=== PATIENT | female | born 1940 | race Caucasian/White ===

== ENCOUNTER 2017-02-19 09:29 | Outpatient (CLI) | payer OTHER | END 2017-02-19 20:53 | disposition home or self-care (01) | LOC: SMA 09:29 → EDBD 09:29 → SMA 20:53 | PROVIDERS: ATTEND Family Medicine | DX: Z12.31 Encounter for screening mammogram for malignant neoplasm of breast (principal) | CPT/HCPCS: G0202 ==

== ENCOUNTER 2018-04-02 10:19 | Outpatient (CLI) | payer OTHER | END 2018-04-02 20:39 | disposition home or self-care (01) | LOC: SMA 10:19 | PROVIDERS: ATTEND Family Medicine | DX: Z12.31 Encounter for screening mammogram for malignant neoplasm of breast (principal); R92.1 Mammographic calcification found on diagnostic imaging of breast | CPT/HCPCS: 77067 ==

== ENCOUNTER 2019-04-06 09:15 | Outpatient (CLI) | payer OTHER | END 2019-04-06 20:30 | disposition home or self-care (01) | LOC: SMA 09:15 | PROVIDERS: ATTEND Family Medicine | DX: Z12.31 Encounter for screening mammogram for malignant neoplasm of breast (principal); I70.0 Atherosclerosis of aorta; Z90.49 Acquired absence of other specified parts of digestive tract | CPT/HCPCS: 71046-TC; 77067 ==